=== PATIENT | female | born 1970 | race African-American/Black ===

== ENCOUNTER 2021-12-07 13:43 | Outpatient (CLI) | payer BC, OTHER | END 2021-12-07 13:44 | disposition home or self-care (01) | LOC: CT 13:43 | PROVIDERS: ATTEND Family Medicine | DX: R31.9 Hematuria, unspecified (principal); M54.50 Low back pain, unspecified; N20.0 Calculus of kidney | CPT/HCPCS: 74176 ==

== ENCOUNTER 2023-01-10 12:18 | Observation (INO) | payer BC, OTHER ==
[2023-01-10] MEDS ORDERED: Morphine 4 MG/ML VIAL ONE ×2 (13:31→14:40)
[2023-01-10] MEDS ORDERED: Ondansetron PF 4 MG/2 ML Vial ONE ×2 (13:32→21:05)
[2023-01-10 13:44] LABS: Bacteria/HPF None Seen HPF (None Seen); Bilirubin Negative (Negative); Blood, Urine Trace (Negative); CAUTI Indications for Culture Dysuria,urgency,freq; Clarity Clear (Clear); Glucose, Urine (Dipstick) Normal (Negative); Ketone, Urine Negative (Negative); Leukocyte Negative Leu/uL (Negative); Nitrite Negative (Negative); Protein, Urine (Dipstick) Negative (Neg-Trace); RBC/HPF 0-3 HPF (0-3); Specific Gravity, Urine 1.013 (1.002-1.036); Squamous Epithelial 0-3 HPF (0-3); Urobilinogen Normal mg/dL (Less than 2); WBC/HPF 0-3 HPF (0-3); pH, Urine 7.5 (5.0-9.0)
[2023-01-10 13:46] LABS: Pregnancy Test - Urine (BHCG) Negative (Negative); Pregu Control Background? CLEAR/WHITE (CLR/WHITE); Pregu Control Bar Appear? YES (CONTROL BAR); Specific Gravity 1.013 (1.002-1.036)
[2023-01-10 13:47] LABS: Urine Culture Reflex No No
[2023-01-10 13:50] LABS: #Eosinphils 0.1 thou/uL (0.0-0.7); #Monocytes 0.5 thou/uL (0.11-0.59); #Neutrophils 6.1 thou/uL (1.40-6.50); %Basophils 0.3 % (0.0-1.0); %Eosinophils 1.3 % (0.0-10.0); %Lymphocytes 25.2 % (21.0-51.0); %Neutrophils 67.9 % (42.0-75.0); Hematocrit 39.5 % (36.0-47.0); Hemoglobin 12.7 g/dL (12.0-16.0); Mean Corpuscular HGB CONC 32.2 g/dL (32.0-36.0); Mean Corpuscular Hemoglobin 28.2 pg (27.0-31.0); Mean Corpuscular Volume 87.8 fl (78.0-98.0); Platelet Count 272 10x3/uL (130-400)
[2023-01-10] MEDS ORDERED: Iopamidol-370 76% 500 ML MDV (1 ML CHARGE) ONE (13:59)
[2023-01-10 14:14] LABS: ALT (SGPT) 21 U/L (8-55); AST (SGOT) 19 U/L (5-34); Albumin 4.5 g/dL (3.5-5.0); Alkaline Phosphatase 96 U/L (40-110); Anion Gap 14 mmol/L (10-20); BUN (Urea Nitrogen) 15 mg/dL (7.0-18.7); Bilirubin, Total 0.3 mg/dL (0.2-1.2); Calc. Creatinine Clearance 0 mL/min (70-130); Calcium 9.4 mg/dL (7.8-10.44); Carbon Dioxide 25 mmol/L (22-29); Chloride 104 mmol/L (98-107); Estimated GFR 63; Glucose 123 mg/dL (70-105); Lipase 10 U/L (8-78); Potassium 3.7 mmol/L (3.5-5.1); Protein, Total 8.5 g/dL (6.0-8.3); Sodium 139 mmol/L (136-145)
[2023-01-10] MEDS ORDERED: Ketorolac Tromethamine 30 MG/ML VIAL ONE (14:41)
[2023-01-10] MEDS ORDERED: Amlodipine 5 MG TAB ONE (15:03)
[2023-01-10] MEDS ORDERED: Ondansetron PF 4 MG/2 ML Vial IVP PRN (16:47)
[2023-01-10] MEDS ORDERED: hydrALAZINE 20 MG/ML VIAL SLOW IVP PRN (16:50)
[2023-01-10] MEDS ORDERED: Labetalol HCl 100 MG/20 ML VIAL SLOW IVP PRN (16:50)
[2023-01-10] MEDS ORDERED: Morphine 2 MG/ML VIAL SLOW IVP PRN (16:53)
[2023-01-10] MEDS ORDERED: traMADol HCl 50 MG TAB PO PRN (17:01)
[2023-01-10] MEDS ORDERED: Iopamidol 15 ML ONE (17:54)
[2023-01-10] MEDS: Lactated Ringer's 1,000 ML IV SCH (17:58)
[2023-01-10] MEDS: Ketorolac Tromethamine 30 MG/ML VIAL IVP PRN (18:10)
[2023-01-10 18:29] VITALS: BMI 37.9
[2023-01-10] MEDS ORDERED: fentaNYL PF 100 MCG/2 ML SYRINGE ONE (20:51)
[2023-01-10] MEDS ORDERED: Tamsulosin HCl 0.4 MG CAP PO SCH (21:00)
[2023-01-10] MEDS ORDERED: PROPOFOL 200 MG/20 ML VIAL ONE (21:05)
[2023-01-10] MEDS ORDERED: Dexamethasone 20 MG/5 ML VIAL ONE (21:05)
[2023-01-10] MEDS ORDERED: Lidocaine 1% PF 5 ML VIAL ONE (21:05)
[2023-01-10] MEDS ORDERED: Ondansetron HCl/PF 4 MG/2 ML Vial IVP PRN (21:35)
[2023-01-10] MEDS ORDERED: Promethazine HCl 25 MG/ML VIAL IM PRN (21:35)
[2023-01-11] MEDS: Lactated Ringer's 1,000 ML IV SCH ×3 (01:00→16:44)
[2023-01-11 06:22] LABS: #Monocytes 0.1 thou/uL (0.11-0.59); #Neutrophils 7.7 thou/uL (1.40-6.50); %Basophils 0.1 % (0.0-1.0); %Lymphocytes 11.6 % (21.0-51.0); %Monocytes 1.2 % (0.0-10.0); %Neutrophils 86.6 % (42.0-75.0); Hematocrit 39.1 % (36.0-47.0); Hemoglobin 12.5 g/dL (12.0-16.0); Mean Corpuscular Hemoglobin 28.2 pg (27.0-31.0); Mean Corpuscular Volume 88.1 fl (78.0-98.0); Mean Platelet Volume 10.1 fL (7.4-10.4); Platelet Count 294 10x3/uL (130-400); RBC Distribution Width 13.8 % (11.5-14.5); Red Blood Cell (RBC) Count 4.44 mill/uL (4.20-5.40); White Blood Cell (WBC) Count 8.9 10x3/uL (4.8-10.8)
[2023-01-11 06:44] LABS: Anion Gap 15 mmol/L (10-20); BUN (Urea Nitrogen) 13 mg/dL (7.0-18.7); Calc. Creatinine Clearance 125 mL/min (70-130); Calcium 9.1 mg/dL (7.8-10.44); Carbon Dioxide 23 mmol/L (22-29); Chloride 103 mmol/L (98-107); Estimated GFR 75; Glucose 158 mg/dL (70-105); Sodium 137 mmol/L (136-145)
[2023-01-11] MEDS ORDERED: Amlodipine 10 MG TAB PO SCH (09:00)
[2023-01-11] MEDS: Ketorolac Tromethamine 30 MG/ML VIAL IVP PRN (11:36)
[2023-01-11 16:02] VITALS: BP 141/88; TEMP 98.8
== END 2023-01-11 17:19 | disposition home or self-care (01) ==
LOC: ERS 12:18 → T4-B 16:31
PROVIDERS: ADMIT Family Medicine; ATTEND Internal Medicine
PROC: 0TH98YZ Insertion of Other Device into Ureter, Via Natural or Artificial Opening Endoscopic (ICD-10-PCS; principal; 2023-01-10)
DX: N20.2 Calculus of kidney with calculus of ureter (principal); N13.30 Unspecified hydronephrosis; I10 Essential (primary) hypertension; E66.9 Obesity, unspecified; Z68.37 Body mass index [BMI] 37.0-37.9, adult; Z90.710 Acquired absence of both cervix and uterus; Z88.2 Allergy status to sulfonamides; Z88.6 Allergy status to analgesic agent; Z88.8 Allergy status to other drugs, medicaments and biological substances; Z79.899 Other long term (current) drug therapy; Z90.49 Acquired absence of other specified parts of digestive tract; Z98.84 Bariatric surgery status
CPT/HCPCS: 36415; 36416; 74177; 74420; 80048; 80053; 81001; 81025; 83690; 85025; 96374; 96375; 96376; C2617; G0378; J0360; J1100; J1885; J2270; J2272; J2405; J2704; J7120; Q9967